=== PATIENT | female | born 1930 | race Caucasian/White ===

== ENCOUNTER 2017-01-17 16:15 | Outpatient (CLI) | payer MEDICARE, OTHER | END 2017-01-17 16:16 | disposition home or self-care (01) | DX: N39.0 Urinary tract infection, site not specified (principal) ==

== ENCOUNTER 2017-01-24 07:49 | Outpatient (CLI) | payer MEDICARE, OTHER | END 2017-01-24 07:50 | disposition home or self-care (01) | DX: N39.0 Urinary tract infection, site not specified (principal) ==

== ENCOUNTER 2017-01-31 14:21 | Emergency (ER) | payer MEDICARE, OTHER | END 2017-01-31 15:36 | disposition home or self-care (01) | DX: N30.01 Acute cystitis with hematuria (principal); I10 Essential (primary) hypertension; Z85.3 Personal history of malignant neoplasm of breast ==

== ENCOUNTER 2017-02-06 15:21 | Emergency (ER) | payer MEDICARE, OTHER ==
[2017-02-06] MEDS ORDERED: IOPAMIDOL-300 50 ML VIAL PO ONE (20:05)
[2017-02-06] MEDS ORDERED: IOPAMIDOL-300 100 ML VIAL IVP ONE (20:05)
== END 2017-02-06 19:22 | disposition home or self-care (01) ==
DX: N82.3 Fistula of vagina to large intestine (principal); N20.0 Calculus of kidney; I51.7 Cardiomegaly; I10 Essential (primary) hypertension; M19.90 Unspecified osteoarthritis, unspecified site; Z85.3 Personal history of malignant neoplasm of breast
CPT/HCPCS: 36415; 74177; 80053; 81001; 83690; 85025; 85610; 87086; 99283; 99284; Q9967

== ENCOUNTER 2017-02-20 11:31 | Emergency (ER) | payer MEDICARE, OTHER ==
[2017-02-20] MEDS ORDERED: DEXAMETHASONE 10 MG/ML VIAL PO STA (12:02)
[2017-02-20] MEDS ORDERED: diphenhydrAMINE 25 MG CAPSULE PO STA (12:02)
[2017-02-20] MEDS ORDERED: CETIRIZINE 10 MG TABLET PO STA (12:02)
[2017-02-20] MEDS ORDERED: CETIRIZINE 10 MG TABLET ONE (12:20)
[2017-02-20] MEDS ORDERED: DEXAMETHASONE 10 MG/ML VIAL ONE (12:20)
[2017-02-20] MEDS ORDERED: diphenhydrAMINE 25 MG CAPSULE PO ONE (12:20)
[2017-02-20] MEDS ORDERED: CHERRY SYRUP 10 ML UDC PO ONE (12:21)
== END 2017-02-20 13:52 | disposition home or self-care (01) ==
DX: K14.8 Other diseases of tongue (principal); T78.40XA Allergy, unspecified, initial encounter; X58.XXXA Exposure to other specified factors, initial encounter; I10 Essential (primary) hypertension; M19.90 Unspecified osteoarthritis, unspecified site; Z85.3 Personal history of malignant neoplasm of breast
CPT/HCPCS: 99283; A9270

== ENCOUNTER 2017-02-22 08:00 | Outpatient (CLI) | payer MEDICARE, OTHER | END 2017-02-22 08:01 | disposition home or self-care (01) | DX: N39.0 Urinary tract infection, site not specified (principal) ==

== ENCOUNTER 2017-03-21 19:35 | Outpatient (CLI) | payer MEDICARE, OTHER | END 2017-03-21 19:36 | disposition critical access hospital (66) | DX: K94.13 Enterostomy malfunction (principal) | CPT/HCPCS: A0425; A0429 ==

== ENCOUNTER 2017-03-21 19:48 | Emergency (ER) | payer MEDICARE, OTHER | END 2017-03-21 21:00 | disposition home or self-care (01) | DX: K94.19 Other complications of enterostomy (principal); I10 Essential (primary) hypertension; M19.90 Unspecified osteoarthritis, unspecified site ==

== ENCOUNTER 2017-05-20 08:00 | Outpatient (CLI) | payer MEDICARE, OTHER ==
[2017-05-20 18:51] LABS: BASOPHILS % (AUTO) 0.5 %; EOSINOPHILS # (AUTO) 0.2 10^3/uL (0.0-0.7); EOSINOPHILS % (AUTO) 3.1 %; HCT - HEMATOCRIT 31.3 % (37.0-47.0); HGB - HEMOGLOBIN 10.3 g/dL (12.0-16.0); LYMPHOCYTES # (AUTO) 2.1 10^3/uL (1.5-3.5); LYMPHOCYTES % (AUTO) 28.5 %; MEAN CORPUSCULAR HEMOGLOBIN 31.3 pg (27.0-31.0); MEAN CORPUSCULAR HGB CONC 32.9 g/dL (32.0-36.0); MEAN CORPUSCULAR VOLUME 95.2 fL (81.0-99.0); MEAN PLATELET VOLUME 7.4 fL (7.9-10.8); MONOCYTES # (AUTO) 0.6 10^3/uL (0.0-1.0); MONOCYTES % (AUTO) 8.5 %; NEUTROPHILS # (AUTO) 4.3 10^3/uL (1.5-6.6); NEUTROPHILS % (AUTO) 59.4 %; RED BLOOD COUNT 3.28 10^6/uL (4.20-5.40); RED CELL DISTRIBUTION WIDTH 14.6 % (12.0-15.0); UNCORRECTED WHITE BLOOD COUNT 7.3 x10^3/uL
[2017-05-20 19:00] LABS: ALBUMIN/GLOBULIN RATIO 1.5 (1.0-2.2); BILIRUBIN,TOTAL 0.2 mg/dL (0.2-1.0); CALCIUM 10.4 mg/dL (8.5-10.3); CREATININE 0.7 mg/dL (0.4-1.0); POTASSIUM 3.5 mmol/L (3.5-5.0); TOTAL PROTEIN 6.1 g/dL (6.7-8.2)
[2017-05-20 19:31] LABS: WHITE BLOOD COUNT 7.3 x10^3/uL (4.8-10.8)
== END 2017-05-20 08:01 | disposition home or self-care (01) ==
LOC: LAB.WCP 08:00
PROVIDERS: ATTEND Physician Assistant Medical
DX: K92.1 Melena (principal)
CPT/HCPCS: 36415; 80053; 82728; 85025

== ENCOUNTER 2017-05-29 10:00 | Outpatient (CLI) | payer MEDICARE, OTHER ==
[2017-05-29 11:12] LABS: BASOPHILS % (AUTO) 0.7 %; EOSINOPHILS # (AUTO) 0.3 10^3/uL (0.0-0.7); EOSINOPHILS % (AUTO) 3.7 %; LYMPHOCYTES # (AUTO) 1.6 10^3/uL (1.5-3.5); LYMPHOCYTES % (AUTO) 23.8 %; MEAN CORPUSCULAR HEMOGLOBIN 31.3 pg (27.0-31.0); MEAN CORPUSCULAR HGB CONC 33.2 g/dL (32.0-36.0); MEAN CORPUSCULAR VOLUME 94.3 fL (81.0-99.0); MEAN PLATELET VOLUME 7.6 fL (7.9-10.8); MONOCYTES # (AUTO) 0.5 10^3/uL (0.0-1.0); MONOCYTES % (AUTO) 7.2 %; NEUTROPHILS # (AUTO) 4.4 10^3/uL (1.5-6.6); NEUTROPHILS % (AUTO) 64.6 %; NUCLEATED RED BLOOD CELLS AUTO 0.1 /100WBC; RED BLOOD COUNT 3.82 10^6/uL (4.20-5.40); RED CELL DISTRIBUTION WIDTH 14.7 % (12.0-15.0); UNCORRECTED WHITE BLOOD COUNT 6.7 x10^3/uL; WHITE BLOOD COUNT 6.7 x10^3/uL (4.8-10.8)
== END 2017-05-29 10:01 | disposition home or self-care (01) ==
LOC: LAB.R 10:00
PROVIDERS: ATTEND Physician Assistant Medical
DX: K92.1 Melena (principal)
CPT/HCPCS: 85025

== ENCOUNTER 2017-07-31 17:25 | Outpatient (CLI) | payer MEDICARE, OTHER ==
--- NOTE | 2017-08-01 10:26 | Ultrasound Report ---
EXAM: LEFT LOWER EXTREMITY VENOUS ULTRASOUND EXAM DATE: 07/31/2017 06:00 PM. CLINICAL HISTORY: Left lower extending edema for several months. Rule out DVT. COMPARISON: None. TECHNIQUE: Real-time sonographic vascular imaging was performed by the cytology manager through the lower extremity utilizing both color-flow and Doppler spectral analysis. Multiple sales representative health insurance static yeni ges were saved for review. FINDINGS: Common Femoral Vein (CFV): Normal. CFV-GSV Junction: Normal. Profunda Femoral Vein (PFV): Normal. Femoral Vein (FV) Prox: Normal. Femoral Vein (FV) Mid: Normal. Femoral Vein (FV) Dist: Normal. Popliteal Vein: Normal. Posterior Tibial Veins: Normal. Peroneal Veins: Normal. Contralateral Side CFV: Normal. Other: No White's cyst. IMPRESSION: 1. Negative for DVT in the left lower extremity. [facility] Referring Provider Line: [phone] SITE ID: [id number]
--- NOTE | 2017-08-02 10:25 | Ultrasound Report ---
CAROTID DUPLEX: 07/31/2017 CLINICAL INDICATION: Dizziness. TECHNIQUE: Real-time sonographic vascular imaging was performed by the project product manager through the carotid arteries utilizing both color-flow and Doppler spectral analysis. Multiple outside dealer sales representative static images were saved for review. Vessel PSV cm/sec 2D Plaque Estimate % EDV cm/sec ICA/CCA PSV % Stenosis RCCA Prox 83 -- RCCA Dist 83 11 -- RECA 79 -- RT BULB 54 -- 7 0.7 SANNA Prox 46 -- 8 0.6 SANNA Mid 81 -- 16 0.9 SANNA Dist 72 -- 21 0.9 RVA 50 RVA flow direction: Antegrade. Vessel PSV cm/sec 2D Plaque Estimate % EDV cm/sec ICA/CCA PSV % Stenosis LCCA Prox 85 -- LCCA Dist 81 12 -- LECA 104 -- LFT BULB 61 -- 13 0.8 LICA Prox 71 -- 7 0.9 LICA Mid 77 -- 15 0.9 LICA Dist 77 -- 17 0.9 LVA 62 LVA flow direction: Antegrade. Velocity criteria are extrapolated from diameter data as defined by the Society of Radiologists in Ultrasound Consensus Conference Radiology 2003; 229; 340-346. Degree of Stenosis % ICA PSV cm/sec Plaque Estimate % ICA/CCA RSV Ratio ICA EDV cm/sec Normal < 125 None < 2.0 < 40 <50 < 125 < 50 < 2.0 < 40 50-69 125 - 130 >/= 50 2.0 - 4.0 40 - 100 >/= 70 but less than near occlusion > 230 >/= 50 > 4.0 > 100 Near occlusion High, low, or undetectable Visible lumen Variable Variable Total occlusion Undetectable No detectable lumen Not applicable Not applicable FINDINGS: RIGHT: There is minimal plaquing in the right carotid bifurcation, without evidence of a focal hemodynamically significant carotid stenosis. LEFT: There is minimal plaquing in the left carotid bifurcation, without evidence of a focal hemodynamically significant carotid stenosis. The vertebral arteries demonstrate antegrade flow bilaterally. IMPRESSION: MINIMAL PLAQUING BILATERALLY. NO EVIDENCE OF A FOCAL HEMODYNAMICALLY SIGNIFICANT CAROTID STENOSIS. MTDD
== END 2017-07-31 17:26 | disposition home or self-care (01) ==
LOC: DI 17:25
PROVIDERS: ATTEND Physician Assistant Medical
DX: R60.0 Localized edema (principal); R42 Dizziness and giddiness
CPT/HCPCS: 93880

== ENCOUNTER 2017-10-04 16:07 | Outpatient (CLI) | payer MEDICARE, OTHER | END 2017-10-04 16:08 | disposition critical access hospital (66) | LOC: EMS 16:07 | PROVIDERS: ATTEND Surgery | DX: M25.562 Pain in left knee (principal) | CPT/HCPCS: A0425; A0429 ==

== ENCOUNTER 2017-10-04 16:21 | Emergency (ER) | payer MEDICARE, OTHER ==
--- NOTE | 2017-10-04 17:33 | ED Physician Documentation ---
PD HPI LOWER EXT INJURY - Stated complaint Stated Complaint: GLF - LEFT KNEE PAIN - Chief complaint Chief Complaint: Ext Problem - History obtained from History obtained from: Patient (pt states that she was walking at home carrying an object when she tripped stepping up on a step. she landed on both her knees. Unable to walk after the fall. did not hit her head. No LOC) - History of Present Illness PD HPI LOW EXT INJURY LOCATION: Left, Hip, Upper leg, Knee Type of injury: Fall Where injury occurred: Home Timing - onset: Other (Just prior to arrival) Review of Systems Ten Systems: 10 systems reviewed and negative Constitutional: denies: Fever, Chills Throat: denies: Sore throat Cardiac: denies: Chest pain / pressure, Palpitations Respiratory: denies: Dyspnea, Cough GI: denies: Abdominal Pain, Nausea, Vomiting, Constipation, Diarrhea : denies: Dysuria, Frequency Skin: denies: Rash, Lesions, Laceration (s) Musculoskeletal: reports: Extremity pain, Joint pain, Joint swelling. denies: Neck pain Neurologic: denies: Generalized weakness, Headache, LOC PD PAST MEDICAL HISTORY - Past Medical History Past Medical History: Yes Cardiovascular: Hypertension Respiratory: None Neuro: None Endocrine/Autoimmune: None GI: None NEPHROLOGY SOCIAL WORKER: Breast cancer : None HEENT: Chronic hearing loss, Other Psych: Anxiety Musculoskeletal: Osteoarthritis Derm: None - Past Surgical History Past Surgical History: Yes General: Appendectomy Ortho: Knee replacement /NEPHROLOGY SOCIAL WORKER: Other HEENT: Cataracts - Present Medications Home Medications: Ambulatory Orders Medication Instructions Recorded Confirmed Amiodarone [Pacerone] 200 mg PO DAILY 10/04/17 10/04/17 Carvedilol 6.25 mg PO BID 10/04/17 10/04/17 Lisinopril 10 mg PO DAILY 10/04/17 10/04/17 Warfarin [Coumadin] 5 mg PO 1400 10/04/17 10/04/17 - Allergies Allergies/Adverse Reactions: Allergies Allergy/AdvReac Type Severity Reaction Status Date / Time clarithromycin [From Biaxin] Allergy Rash Verified 10/04/17 16:37 venom-honey bee Allergy resp Verified 10/04/17 16:37 [bee venom (honey bee)] - Social History Does the pt smoke?: No Smoking Status: Never smoker Does the pt drink ETOH?: Yes Does the pt have substance abuse?: No - POLST Patient has POLST: No PD ED PE NORMAL - Vitals Vital signs reviewed: Yes - General General: Alert and oriented X 3 - HEENT HEENT: Atraumatic - Neck Neck: No bony TTP - Cardiac Cardiac: RRR, No murmur, No gallop, No rub - Respiratory Respiratory: No respiratory distress, Clear bilaterally - Abdomen Abdomen: Soft, Non tender, Non distended - Back Back: No spinal TTP - Derm Derm: Normal color, No rash - Extremities Extremities: No: No deformity (+ swelling to her left knee), No tenderness to palpate (+ TTp along the left knee and lateral leg), Normal ROM s pain (limited ROM of left knee) - Neuro Neuro: Alert and oriented X 3 Eye Opening: Spontaneous Motor: Obeys Commands Verbal: Oriented GCS Score: 15 - Psych Psych: Normal mood, Normal affect PD ED PE EXPANDED - Extremities Extremities: Limited ROM, Left knee. No: Abrasion, Laceration Results - Vitals Vitals: Vital Signs - 24 hr 10/04/ 16:28 Temperature 36.8 C Heart Rate 65 Respiratory 16 Rate Blood Pressure 166/78 H O2 Saturation 98 Oxygen O2 Source [With Activity] Room air O2 Source [Without Activity] Room air O2 Source Room air - Rads (name of study) Left femur/hip/knee Radiology: EMP read contemporaneously PD MEDICAL DECISION MAKING - ED course ED course: pt with mechanical fall. X-rays showing a comminuted periprosthetic distal femur fracture. Discussed case with Dr Nelson (ortho) who states that we cannot handle that type of fracture here at this hospital. I informed pt of her fracture. she declined the offer for pain medication. Plan for transfer. no other injuries from the fall. discussed case with Dr Echols at [facility] (ortho ) who accepts patient. Departure - Departure Disposition: 02 Transfer Acute Care Hosp Clinical Impression: Femur fracture, left Qualifiers: Encounter type: initial encounter Femur location: distal Fracture type: closed Fracture morphology: unspecified fracture morphology Qualified Code(s): S72.402A - Unspecified fracture of lower end of left femur, initial encounter for closed fracture Condition: Stable
--- NOTE | 2017-10-04 17:38 | XRAY Preliminary Report ---
Exam: XR KNEE 4 VIEW LT IMPRESSION: Distal femoral metadiaphyseal fracture, extending through the [place]lowa dee-ni' residual bone along the knee arthrodesis. [facility] SITE ID: [id number]
--- NOTE | 2017-10-04 17:39 | XRAY Preliminary Report ---
Exam: XR HIP W/PELVIS 2-3V LT IMPRESSION: No acute bony abnormality. [facility] SITE ID: [id number]
--- NOTE | 2017-10-04 17:41 | XRAY Preliminary Report ---
Exam: XR FEMUR 2V LT IMPRESSION: Distal femoral metadiaphyseal fracture. [facility] SITE ID: [id number]
--- NOTE | 2017-10-04 17:46 | XRAY Report ---
EXAM: LEFT KNEE RADIOGRAPHY EXAM DATE: 10/04/2017 05:21 p.m. CLINICAL HISTORY: Fall with pain. COMPARISON: 01/14/2014. TECHNIQUE: 4 views. FINDINGS: Bones: Acute comminuted displaced fracture involving the distal femoral metadiaphysis and residual la teral femoral condyle. Osteopenia. Joints: Remote total knee replacement. Normal alignment of the prosthetic components. The distal femo ral fracture fragments involve the [place] residual bone adjacent to the superior two thirds of the fe moral prosthetic component. Soft Tissues: Marked edema at the fracture site. IMPRESSION: Distal femoral metadiaphyseal fracture, extending through the [place] residual bone along the femoral prosthetic component. [facility] Referring Provider Line: [phone] SITE ID: [id number]
--- NOTE | 2017-10-04 17:46 | XRAY Report ---
EXAM: LEFT HIP AND PELVIS RADIOGRAPHY EXAM DATE: 10/04/2017 05:21 PM. HISTORY: Fall with pain. COMPARISONS: CT abdomen pelvis 02/06/2017. TECHNIQUE: 1 view of the pelvis and 1 view of the hip. FINDINGS: Bones: Normal. No fracture or bone lesion. Joints: Multilevel marked degenerative changes lumbar spine. Mild degenerative changes both hips. Moderate degenerative changes both sacroiliac joints. Soft Tissues: Normal. No soft tissue swelling. IMPRESSION: No acute bony abnormality. [facility] Referring Provider Line: [phone] SITE ID: [id number]
--- NOTE | 2017-10-04 17:46 | XRAY Report ---
EXAM: LEFT FEMUR RADIOGRAPHY EXAM DATE: 10/04/2017 05:20 PM. CLINICAL HISTORY: Fall with pain. COMPARISON: None. TECHNIQUE: 3 views. FINDINGS: Bones: Acute comminuted displaced fracture involving a distal femoral metadiaphysis, with the fractur e fragments extending to the [place] bone surrounding the distal femoral knee component. Joints: Remote total knee replacement. Mild degenerative changes left hip. Soft Tissues: Marked edema at the fracture site. IMPRESSION: Distal femoral metadiaphyseal fracture. [facility] Referring Provider Line: [phone] SITE ID: [id number]
[2017-10-04 21:24] VITALS: BP 155/78
== END 2017-10-04 21:40 | disposition short-term general hospital (02) ==
LOC: EDUNIT# → ED 16:21
DX: S72.402A Unspecified fracture of lower end of left femur, initial encounter for closed fracture (principal); W01.0XXA Fall on same level from slipping, tripping and stumbling without subsequent striking against object, initial encounter; Y93.01 Activity, walking, marching and hiking; Y92.009 Unspecified place in unspecified non-institutional (private) residence as the place of occurrence of the external cause; I10 Essential (primary) hypertension; Z96.659 Presence of unspecified artificial knee joint
CPT/HCPCS: 99283; 99285

== ENCOUNTER 2017-10-04 21:54 | Outpatient (CLI) | payer MEDICARE, OTHER | END 2017-10-04 21:55 | disposition short-term general hospital (02) | LOC: EMS 21:54 | PROVIDERS: ATTEND Surgery | DX: Z74.01 Bed confinement status (principal); S89.92XA Unspecified injury of left lower leg, initial encounter | CPT/HCPCS: A0170; A0425; A0428 ==

== ENCOUNTER 2017-10-17 09:10 | Outpatient (CLI) | payer MEDICARE, OTHER ==
[2017-10-17 09:39] LABS: BASOPHILS # (AUTO) 0.1 10^3/uL (0.0-0.1); BASOPHILS % (AUTO) 1.1 %; EOSINOPHILS # (AUTO) 0.3 10^3/uL (0.0-0.7); EOSINOPHILS % (AUTO) 3.8 %; HCT - HEMATOCRIT 32.8 % (37.0-47.0); LYMPHOCYTES # (AUTO) 1.6 10^3/uL (1.5-3.5); LYMPHOCYTES % (AUTO) 19.6 %; MEAN CORPUSCULAR HEMOGLOBIN 31.6 pg (27.0-31.0); MEAN CORPUSCULAR HGB CONC 33.4 g/dL (32.0-36.0); MEAN CORPUSCULAR VOLUME 94.5 fL (81.0-99.0); MEAN PLATELET VOLUME 6.7 fL (7.9-10.8); MONOCYTES # (AUTO) 0.4 10^3/uL (0.0-1.0); MONOCYTES % (AUTO) 4.4 %; NEUTROPHILS # (AUTO) 5.8 10^3/uL (1.5-6.6); NEUTROPHILS % (AUTO) 71.1 %; RED BLOOD COUNT 3.47 10^6/uL (4.20-5.40); RED CELL DISTRIBUTION WIDTH 18.2 % (12.0-15.0); UNCORRECTED WHITE BLOOD COUNT 8.2 x10^3/uL; WHITE BLOOD COUNT 8.2 x10^3/uL (4.8-10.8)
== END 2017-10-17 09:11 | disposition home or self-care (01) ==
LOC: LAB.R 09:10
DX: D64.9 Anemia, unspecified (principal)
CPT/HCPCS: 85025

== ENCOUNTER 2018-01-14 08:00 | Outpatient (CLI) | payer MEDICARE, OTHER ==
[2018-01-14 19:16] LABS: INR 1.1 (0.8-1.2)
== END 2018-01-14 08:01 | disposition home or self-care (01) ==
LOC: LAB.N 08:00
PROVIDERS: ATTEND Family Medicine
DX: I48.91 Unspecified atrial fibrillation (principal)
CPT/HCPCS: 85610

== ENCOUNTER 2018-02-28 08:00 | Outpatient (CLI) | payer MEDICARE, OTHER ==
[2018-02-28 12:39] LABS: BASOPHILS % (AUTO) 0.3 %; EOSINOPHILS # (AUTO) 0.1 10^3/uL (0.0-0.7); EOSINOPHILS % (AUTO) 1.5 %; HGB - HEMOGLOBIN 11.8 g/dL (12.0-16.0); LYMPHOCYTES # (AUTO) 1.6 10^3/uL (1.5-3.5); LYMPHOCYTES % (AUTO) 25.7 %; MEAN CORPUSCULAR HEMOGLOBIN 32.8 pg (27.0-31.0); MEAN CORPUSCULAR HGB CONC 33.8 g/dL (32.0-36.0); MEAN CORPUSCULAR VOLUME 97.2 fL (81.0-99.0); MEAN PLATELET VOLUME 7.4 fL (7.9-10.8); MONOCYTES # (AUTO) 0.4 10^3/uL (0.0-1.0); MONOCYTES % (AUTO) 5.7 %; NEUTROPHILS # (AUTO) 4.2 10^3/uL (1.5-6.6); NEUTROPHILS % (AUTO) 66.8 %; PLT - PLATELET COUNT 258 10^3/uL (130-450); RED CELL DISTRIBUTION WIDTH 13.6 % (12.0-15.0); WHITE BLOOD COUNT 6.3 x10^3/uL (4.8-10.8)
[2018-02-28 13:26] LABS: ALBUMIN 4.5 g/dL (3.2-5.5); ALKALINE PHOSPHATASE 71 IU/L (42-121); ALT ALANINE AMINOTRANSFERASE 19 IU/L (10-60); AST ASPARTATE AMINOTRANSFERASE 23 IU/L (10-42); BILIRUBIN,TOTAL 0.4 mg/dL (0.2-1.0); BUN - BLOOD UREA NITROGEN 15 mg/dL (6-20); CARBON DIOXIDE - CO2 30 mmol/L (21-32); CHLORIDE 107 mmol/L (101-111); CHOL/HDL RATIO 2.7 (<4.4); CHOLESTEROL 225 mg/dL; CREATININE 0.7 mg/dL (0.4-1.0); GFR - MDRD 79 (>89); GLUCOSE 103 mg/dL (70-100); HDL CHOLESTEROL 84 mg/dL; LDL CHOLESTEROL,CALCULATED 116 mg/dL; LDL/HDL RATIO 1.4 (<4.4); SODIUM 141 mmol/L (135-145); TOTAL PROTEIN 6.8 g/dL (6.7-8.2); VLDL CHOLESTEROL 25 mg/dL
== END 2018-02-28 08:01 | disposition home or self-care (01) ==
LOC: LAB.WCP 08:00
PROVIDERS: ATTEND Physician Assistant Medical
DX: I10 Essential (primary) hypertension (principal); E78.5 Hyperlipidemia, unspecified
CPT/HCPCS: 36415; 80053; 80061; 83721; 85025

== ENCOUNTER 2018-03-16 08:06 | Outpatient (CLI) | payer MEDICARE, OTHER | END 2018-03-16 08:07 | disposition EMS.NT | LOC: EMS 08:06 | PROVIDERS: ATTEND Surgery | DX: R04.0 Epistaxis (principal); W01.0XXA Fall on same level from slipping, tripping and stumbling without subsequent striking against object, initial encounter; Y92.009 Unspecified place in unspecified non-institutional (private) residence as the place of occurrence of the external cause ==

== ENCOUNTER 2018-03-26 17:59 | Outpatient (CLI) | payer MEDICARE, OTHER ==
--- NOTE | 2018-03-26 18:52 | XRAY Report ---
EXAM: LEFT KNEE RADIOGRAPHY EXAM DATE: 03/26/2018 06:13 PM. CLINICAL HISTORY: KNEE PAIN, LEFT. COMPARISON: Left knee 10/04/2017. TECHNIQUE: 4 views. FINDINGS: New lateral plate and multiple screws for internal fixation of the distal femur fracture that extends to the femoral arthroplasty. There is mild lateral displacement at the fracture, improved alignment compared to prior. Fracture line is still seen, however there is new callus formation consistent with interval healing. Bones are demineralized. Left total knee arthroplasty again noted. No subluxation. No significant knee joint effusion. IMPRESSION: New lateral plate and multiple screws for internal fixation of the distal femur fracture that extends to the femoral arthroplasty. There is mild lateral displacement at the fracture, improve d alignment compared to prior. Fracture line is still seen, however there is new callus formation con sistent with interval healing. Bones are demineralized. Left total knee arthroplasty again noted. No subluxation. No significant knee joint effusion. [facility] The above findings were discussed with BART Bergeron by Dr. Luna Canales at 18:49 hrs on 03/26/18. Referring Provider Line: [phone] SITE ID: [id number]
--- NOTE | 2018-03-26 18:54 | CT Report ---
EXAM: CT HEAD EXAM DATE: 03/26/2018 06:21 PM. CLINICAL HISTORY: DOUBLE VISION. Fall 10 days ago, on Coumadin. COMPARISON: None. TECHNIQUE: Multiaxial CT images were obtained from the foramen magnum to the vertex. Reformats: Coron al. IV contrast: None. In accordance with CT protocol optimization, one or more of the following dose reduction techniques w ere utilized for this exam: automated exposure control, adjustment of mA and/or KV based on patient s ize, or use of iterative reconstructive technique. FINDINGS: Parenchyma: No intraparenchymal hemorrhage. No evidence of mass, midline shift, or CT findings of acu te infarction. Palma-white differentiation is distinct. Bilateral chronic microangiopathic white matte r changes are evident. Extraaxial Spaces: Normal for age. No subdural or epidural collections identified. Ventricles: The ventricles and cortical sulci are enlarged, consistent with age-related tissue loss. Sinuses and orbits: Imaged paranasal sinuses, orbits, and mastoids show no significant abnormality. Bones: No evidence of fracture or calvarial defect. IMPRESSION: Generalized age-related cortical atrophic changes without evidence of acute intracranial abnormality. [facility] The call report notification system was initiated by Dr. Luna Canales at 18:39 hrs on 03/26/18. The above findings were discussed with BART Bergeron by Dr. Luna Canales at 18:49 hrs on 03/26/18. Referring Provider Line: [phone] SITE ID: [id number]
--- NOTE | 2018-03-26 18:55 | XRAY Report ---
EXAM: LUMBOSACRAL SPINE RADIOGRAPHY EXAM DATE: 03/26/2018 06:13 PM. CLINICAL HISTORY: LUMBAR RADICULOPATHY. COMPARISONS: Lumbar spine 06/12/2012. TECHNIQUE: 3 views. FINDINGS: Mild anterolisthesis at L4-L5, unchanged. Severe diffuse degenerative disc disease and facet arthropa thy. Osseous fusion of the vertebral bodies at L1-L2, unchanged. Moderate levoscoliosis in the lumbar spine again noted. No evidence for acute fracture in the lumbar spine. Gas-filled colon diffusely. IMPRESSION: No evidence for acute fracture. Severe degenerative changes. See above. [facility] The call report notification system was initiated by Dr. Luna Canales at 18:45 hrs on 03/26/18. The above findings were discussed with BART Bergeron by Dr. Luna Canales at 18:49 hrs on 03/26/18. Referring Provider Line: [phone] SITE ID: [id number]
== END 2018-03-26 18:00 | disposition home or self-care (01) ==
LOC: DI 17:59
PROVIDERS: ATTEND Physician Assistant Medical
DX: H53.2 Diplopia (principal); M25.562 Pain in left knee; M54.16 Radiculopathy, lumbar region; G31.9 Degenerative disease of nervous system, unspecified; M51.36 Other intervertebral disc degeneration, lumbar region
CPT/HCPCS: 70450; 72100

== ENCOUNTER 2018-05-22 19:29 | Outpatient (CLI) | payer MEDICARE, OTHER | END 2018-05-22 23:59 | LOC: LAB.R 19:29 | PROVIDERS: ATTEND Physician Assistant Medical | DX: R29.6 Repeated falls (principal) | CPT/HCPCS: 87086 ==

== ENCOUNTER 2018-08-09 13:11 | Emergency (ER) | payer MEDICARE, OTHER ==
--- NOTE | 2018-08-09 15:07 | ED Physician Documentation ---
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: Breast cancer : None HEENT: Chronic hearing loss, Other Psych: Anxiety Musculoskeletal: Osteoarthritis Derm: None - Past Surgical History Past Surgical History: Yes General: Appendectomy Ortho: Knee replacement /REGIONAL GEODETIC ADVISOR: Other HEENT: Cataracts - Present Medications Home Medications: Ambulatory Orders Medication Instructions Recorded Confirmed Amiodarone [Pacerone] 200 mg PO DAILY 10/04/17 10/04/17 Carvedilol 6.25 mg PO BID 10/04/17 10/04/17 Lisinopril 10 mg PO DAILY 10/04/17 10/04/17 Warfarin [Coumadin] 5 mg PO 1400 10/04/17 10/04/17 Bacitracin/Polymyxin Ophth Oin 1 applic OPTH Q6H #1 tube 08/09/18 [Polysporin Ophth Oint] Iron,Carbonyl [Iron Chews] 08/09/18 08/09/18 Magnesium 08/09/18 Mirtazapine 08/09/18 Multivitamin [Multiple Vitamins] 08/09/18 - Allergies Allergies/Adverse Reactions: Allergies Allergy/AdvReac Type Severity Reaction Status Date / Time clarithromycin [From Biaxin] Allergy Rash Verified 10/04/17 16:37 venom-honey bee Allergy resp Verified 08/09/18 13:17 [bee venom (honey bee)] - Social History Does the pt smoke?: No Smoking Status: Never smoker Does the pt drink ETOH?: Yes Does the pt have substance abuse?: No - Immunizations Immunizations are current?: Yes - POLST Patient has POLST: No PD ED PE NORMAL - Vitals Vital signs reviewed: Yes - HEENT HEENT: Other (PERRL, mild injection rioght eye, no dc, globe soft, stye inner upper lateral right lid) - Cardiac Cardiac: RRR - Respiratory Respiratory: No respiratory distress, Clear bilaterally Results - Vitals Vitals: Vital Signs - 24 hr 08/09/18 13:15 Temperature 36 C L Heart Rate 99 Respiratory 20 Rate Blood Pressure 135/102 H O2 Saturation 93 Oxygen O2 Source [With Activity] Room air O2 Source [Without Activity] Room air O2 Source Room air PD MEDICAL DECISION MAKING - Sepsis Event Vital Signs: Vital Signs - 24 hr 08/09/18 13:15 Temperature 36 C L Heart Rate 99 Respiratory 20 Rate Blood Pressure 135/102 H O2 Saturation 93 Oxygen O2 Source [With Activity] Room air O2 Source [Without Activity] Room air O2 Source Room air Departure - Departure Disposition: 01 Home, Self Care Clinical Impression: Stye Qualifiers: Laterality: right Eyelid: upper Qualified Code(s): H00.011 - Hordeolum externum right upper eyelid Condition: Good Instructions: ED Hordeolum Follow-Up: Shirley Bergeron PA-C [Primary Care Provider] - Prescriptions: Bacitracin/Polymyxin Ophth Oin [Polysporin Ophth Oint] 1 applic OPTH Q6H #1 tube
[2018-08-09] MEDS ORDERED: ACETAMINOPHEN 325 MG TABLET PO STA (15:11)
[2018-08-09 15:32] VITALS: BP 175/90
== END 2018-08-09 15:38 | disposition home or self-care (01) ==
LOC: ED 13:11
DX: H00.011 Hordeolum externum right upper eyelid (principal); I10 Essential (primary) hypertension; Z79.01 Long term (current) use of anticoagulants
CPT/HCPCS: 99283; A9270

== ENCOUNTER 2018-08-20 15:14 | Outpatient (CLI) | payer MEDICARE, OTHER ==
[2018-08-20 18:49] LABS: BASOPHILS % (AUTO) 0.6 %; EOSINOPHILS # (AUTO) 0.1 10^3/uL (0.0-0.7); EOSINOPHILS % (AUTO) 1.5 %; HGB - HEMOGLOBIN 12.9 g/dL (12.0-16.0); LYMPHOCYTES # (AUTO) 1.7 10^3/uL (1.5-3.5); LYMPHOCYTES % (AUTO) 22.9 %; MEAN CORPUSCULAR HEMOGLOBIN 33.4 pg (27.0-31.0); MEAN CORPUSCULAR HGB CONC 33.6 g/dL (32.0-36.0); MEAN CORPUSCULAR VOLUME 99.5 fL (81.0-99.0); MEAN PLATELET VOLUME 7.6 fL (7.9-10.8); MONOCYTES # (AUTO) 0.6 10^3/uL (0.0-1.0); MONOCYTES % (AUTO) 7.9 %; NEUTROPHILS % (AUTO) 67.1 %; PLT - PLATELET COUNT 273 10^3/uL (130-450); RED BLOOD COUNT 3.86 10^6/uL (4.20-5.40); RED CELL DISTRIBUTION WIDTH 14.5 % (12.0-15.0); WHITE BLOOD COUNT 7.4 x10^3/uL (4.8-10.8)
[2018-08-20 19:04] LABS: ALBUMIN 4.5 g/dL (3.2-5.5); ALBUMIN/GLOBULIN RATIO 1.8 (1.0-2.2); BILIRUBIN,TOTAL 0.5 mg/dL (0.2-1.0); CREATININE 0.8 mg/dL (0.4-1.0)
== END 2018-08-20 15:15 | disposition home or self-care (01) ==
LOC: LAB.WCP 15:14
PROVIDERS: ATTEND Physician Assistant Medical
DX: I10 Essential (primary) hypertension (principal)
CPT/HCPCS: 36415; 80053; 85025

== ENCOUNTER 2018-12-17 08:00 | Outpatient (CLI) | payer MEDICARE, OTHER ==
[2018-12-17 18:56] LABS: BASOPHILS % (AUTO) 0.6 %; EOSINOPHILS # (AUTO) 0.2 10^3/uL (0.0-0.7); EOSINOPHILS % (AUTO) 2.7 %; HGB - HEMOGLOBIN 13.1 g/dL (12.0-16.0); LYMPHOCYTES # (AUTO) 1.9 10^3/uL (1.5-3.5); LYMPHOCYTES % (AUTO) 29.7 %; MONOCYTES # (AUTO) 0.5 10^3/uL (0.0-1.0); MONOCYTES % (AUTO) 7.1 %; NEUTROPHILS # (AUTO) 3.9 10^3/uL (1.5-6.6); NEUTROPHILS % (AUTO) 59.9 %; PLT - PLATELET COUNT 279 10^3/uL (130-450); RED BLOOD COUNT 3.98 10^6/uL (4.20-5.40); RED CELL DISTRIBUTION WIDTH 13.5 % (12.0-15.0); WHITE BLOOD COUNT 6.4 x10^3/uL (4.8-10.8)
[2018-12-17 19:11] LABS: ALBUMIN 4.4 g/dL (3.2-5.5); ALBUMIN/GLOBULIN RATIO 1.7 (1.0-2.2); BILIRUBIN,TOTAL 0.4 mg/dL (0.2-1.0); CALCIUM 11.1 mg/dL (8.5-10.3); CREATININE 0.6 mg/dL (0.4-1.0)
== END 2018-12-17 23:59 | disposition home or self-care (01) ==
LOC: LAB.WCP 08:00
PROVIDERS: ATTEND Family Medicine
DX: K62.5 Hemorrhage of anus and rectum (principal)
CPT/HCPCS: 36415; 80053; 85025